=== PATIENT | female | born 1990 | race Caucasian/White ===

== ENCOUNTER → 2023-12-17 14:20 | Outpatient (REF) | payer BC, SELFPAY ==
[2023-12-17 16:32] LABS: Urine Albumin Negative (Neg - Trace); Urine Bilirubin Negative (Negative); Urine Character Clear (Clear); Urine Color Yellow; Urine Glucose Negative (Negative); Urine Ketone Negative (Negative); Urine Leukocyte Negative (Negative); Urine Nitrite Negative (Negative); Urine Occult Blood Trace (Negative); Urine Specific Gravity 1.015 (<1.030); Urine Urobilinogen Negative (Neg - 1+); Urine pH 6.5 (5.0-9.0)
[2023-12-17 16:36] LABS: % Basophils 0.6 % (0-2); % Immature Granulocytes 0.7 % (0-0.5); % Lymphocytes 25.5 % (20.5-51.1); % Monocytes 6.5 % (1.7-9.3); % Neutrophils 62.7 % (42.2-75.2); Absolute Basophils 0.1 10^3/uL (0-0.2); Absolute Eosinophils 0.4 10^3/uL (0-0.7); Absolute Immature Granulocytes 0.1 10^3/uL (0-0.05); Absolute Lymphocytes 2.4 10^3/uL (1.2-3.4); Absolute Monocytes 0.6 10^3/uL (0.1-0.6); Absolute Neutrophils 5.9 10^3/uL (1.4-6.5); Hematocrit 39.9 % (37.0-47.0); Hemoglobin 14.5 g/dL (12.0-16.0); Mean Corp Hgb Conc. 36.3 g/dL (33.0-37.0); Mean Corpuscular Hgb 31.3 pg (27.0-31.0); Mean Platelet Volume 8.9 fL (7.4-10.4); Nucleated Red Blood Cells % 0 %; Platelet Count 295 10^3/uL (130-400); Red Blood Cell Count 4.64 10^6/uL (4.20-5.40); Red Cell Dist. Width 12.5 % (11.5-14.5); White Blood Cell Count 9.4 10^3/uL (4.8-10.8)
[2023-12-17 16:41] LABS: Urine Bacteria Few (Negative); Urine White Cell 0-2 /HPF (0-5)
[2023-12-17 16:49] LABS: D-Dimer < 0.27 ug/mlFEU (0.00-0.50)
[2023-12-17 17:07] LABS: ALT (SGPT) 32 U/L (0-35); AST (SGOT) 32 U/L (14-36); Albumin 4.5 g/dl (3.5-5.0); Alkaline Phosphatase 99 U/L (38-126); Blood Urea Nitrogen 11 mg/dl (7-17); Calcium 9.2 mg/dl (8.4-10.2); Carbon Dioxide 22 mmol/L (22-30); Chloride 105 mmol/L (98-107); Glucose 83 mg/dl (70-99); Iron 67 ug/dl (37-170); Potassium 4.3 mmol/L (3.5-5.1); Sodium 135 mmol/L (135-145); Total Bilirubin 0.5 mg/dl (0.2-1.3); Total Protein 7.3 g/dl (6.3-8.2); eGFR > 60.00
[2023-12-17 17:42] LABS: Ferritin 16.1 ng/ml (6.24-137)
[2023-12-17 18:12] LABS: Free T4 1.34 ng/dl (0.78-2.19)
[2023-12-17 18:13] LABS: Folate 7.6 ng/ml (2.76-20); Vitamin B12 305 pg/ml (239-931)
== END ==
LOC: REG 14:20
PROVIDERS: ATTENDING PHYSICIAN Nurse Practitioner Family
DX: R07.81 Pleurodynia (principal); R53.83 Other fatigue
CPT/HCPCS: 36415; 80053; 81003; 81015; 82607; 82728; 82746; 83540; 84439; 84443; 85025; 85379

== ENCOUNTER → 2024-01-19 09:16 | Outpatient (REF) | payer BC, SELFPAY | LOC: HWRAD 09:16 | PROVIDERS: ATTENDING PHYSICIAN Nurse Practitioner Family; FAMILY PHYSICIAN Family Medicine | DX: R82.90 Unspecified abnormal findings in urine (principal) | CPT/HCPCS: 76770 ==

== ENCOUNTER 2024-02-27 12:14 | Emergency (ER) | payer MEDICARE, SELFPAY ==
[2024-02-27 12:16] VITALS: BP 150/92
[2024-02-27 12:41] VITALS: BMI 40.6
--- NOTE | 2024-02-27 14:45 | ED.GENMED ---
History of Present Illness
<SHEREE Gould - Last Filed: 02/27/24 15:28>
General
Chief Complaint: Eye Problems
Source: patient
Exam Limitations: none
Time Seen by Provider: 02/27/24 13:46
Nursing documentation reviewed up to this point in time: agreed with
History of Present Illness
History of Present Illness:
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 She reports she has flareups intermittently in the side. She was first diagnosed with this in November 2023. 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 She denies any injury. She denies any visual deficits/decreased vision. She went to urgent care today because she had discomfort today. She does not wear contacts.
Past History
<SHEREE Gould - Last Filed: 02/27/24 15:28>
Past History
ED Past Medical History: Hypothyroidism
ED Past Surgical History: None
Social History
Personal: Single
Living: with family
Review of Systems
<SHEREE Gould - Last Filed: 02/27/24 15:28>
Review of Systems
Allergies reviewed?: Yes
All Other Systems: ROS reviewed and negative except as documented in HPI and ROS
Constitutional: Reports no symptoms
EENT: Reports other (left eye irritation )
Skin: Reports no symptoms
Neurological: Reports no symptoms
Hematologic/Lymphatic: Reports no symptoms
Psychiatric: Reports no symptoms
Phy Exam
<SHEREE Gould - Last Filed: 02/27/24 15:28>
General Physical Exam
General Presentation: no apparent distress
General age: appears stated age
General Skin: warm and dry
General Habitus: normal
General Mental: alert
General Hydration: appears well hydrated
ENT Exam
ENT Exam: EOMI
Eye Exam
Eye Exam: PERRL, EOMI and other (left eye with mild swelling to upper and lower eyelid left eye is watery and injected examined with fluorescein+ abrasion noted between between 7 and 8 o clock on fb )
Eye Exam General: PERRL: bilateral and EOM intact: bilateral
Pupil Exam: Bilateral: round and reactive
Neurological Exam
Neurological Exam: alert and oriented x3
Musculoskeletal Exam
Musculoskeletal Exam: full ROM
Skin Exam
Skin Exam: normal color and warm/dry
Psychiatric Exam
Psychiatric Exam: normal mood/affect
Course
<SHEREE Gould - Last Filed: 02/27/24 15:28>
Orders/Labs/Results
Orders:
Orders
02/27/24 15:21
Visual Acuity- Treatment ONCE
02/27/24 15:22
Erythromycin (Ilotycin) [Erythromycin 0.5% Ophthalmic Ointment] See Dose Instructions OPHTH NOW STA
Tetanus/Diphth/Acelpertussis [Adacel] 0.5 ml IM .ONCE ONE
Vital Signs
Initial and Last Documented VS:
Initial Vital Signs
Temp Pulse Resp BP Pulse Ox
98.2 F 94 16 150/92 98
02/27/24 12:16 02/27/24 12:16 02/27/24 12:16 02/27/24 12:16 02/27/24 12:16
Last Documented Vital Signs
Temp Pulse Resp BP Pulse Ox
98.2 F 94 16 150/92 98
02/27/24 12:16 02/27/24 12:16 02/27/24 12:16 02/27/24 12:16 02/27/24 12:16
Information Services Assistant consulted with Physician
Information Services Assistant consulted with physician?: Yes
Name of Physician Consulted: vincent
<Chidi Arauz DO - Last Filed: 02/27/24 15:32>
Orders/Labs/Results
Orders:
Orders
02/27/24 15:21
Visual Acuity- Treatment ONCE
02/27/24 15:22
Erythromycin (Ilotycin) [Erythromycin 0.5% Ophthalmic Ointment] See Dose Instructions OPHTH NOW STA
Tetanus/Diphth/Acelpertussis [Adacel] 0.5 ml IM .ONCE ONE
Vital Signs
Initial and Last Documented VS:
Initial Vital Signs
Temp Pulse Resp BP Pulse Ox
98.2 F 94 16 150/92 98
02/27/24 12:16 02/27/24 12:16 02/27/24 12:16 02/27/24 12:16 02/27/24 12:16
Last Documented Vital Signs
Temp Pulse Resp BP Pulse Ox
98.2 F 94 16 150/92 98
02/27/24 12:16 02/27/24 12:16 02/27/24 12:16 02/27/24 12:16 02/27/24 12:16
<SHEREE Gould - Last Filed: 02/27/24 15:28>
MDM/Problems Addressed
Differential Diagnosis Includes:
Not limited to corneal abrasion, chronic corneal epithelial basement dystrophy
MDM/Problems Addressed:
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 She went to urgent care because it was more irritated than normal and sent to
the ER. On exam however she does have an obvious abrasion. I was able to discuss this with ophthalmology Dr. Hope who will see patient in the office tomorrow will DC on antibiotic ointment.
<SHEREE Gould - Last Filed: 02/27/24 15:28>
*Critical Care Note
Total Time (30-74mins, 75-104mins- exclusive of procedures): Not Applicable
ED Attending Note
<SHEREE Gould - Last Filed: 02/27/24 15:28>
-
Portions of this chart may have been created with voice recognition software.� Occasional wrong word or��sound alike� substitutions may have occurred due to the inherent limitations of voice recognition software.
<Chidi Arauz DO - Last Filed: 02/27/24 15:32>
ED Attending Note
Patient seen and examined by attending physician: Yes
I performed the substantive portion of visit, reviewed & personally made and approve the management plan that is documented in note by myself or EMANUEL.: Yes
ED Attending Note:
I have seen and evaluated the patient with a [id number] encounter. I have spoken to the advance practicer provider and involved in the medical history, the physical exam, medical decision making.
Evaluation and management service: agree unless noted differently below.
Results interpretation: agree unless noted differently below.
Focused HPI: 33-year-old female presenting for evaluation of left eye pain. She has a history of epithelial basement membrane dystrophy. She was told that her layer of skin overlying her eye can sometimes slough off
Physical exam: Left sclera injected. Large abrasion noted in central cornea with fluorescein uptake. No Nagi sign
Medical Decision Making: Ophthalmology aware. Will start antibiotic ointment and they will follow-up tomorrow.
Discharge Plan
Departure
Patient Disposition: Home (Routine Discharge)
Date of Disposition: 02/27/24
Time of Disposition: 15:23
Patient with high blood pressure during this ER visit?: Yes
Condition: Fair
Covid-19: Not Applicable
Discharge Problem:
Corneal abrasion
Instructions: Corneal Abrasion (DC), BLOOD PRESSURE
Prescriptions:
No Action
levothyroxine 125 MCG tablet
125 mcg PO DAILY
Patient Comments:
'OFF X MONTHS'
IBUPROFEN
2 tab PO Q4H PRN (Reason: PAIN)
ondansetron 4 MG tablet,disintegrating
4 mg PO TIDPRN PRN (Reason: NAUSEA) Qty: 15 0RF
hydromorphone 2 MG tablet
2 - 4 mg PO Q4HPRN PRN (Reason: PRN for pain) Qty: 20 0RF
Referrals:
Kam Hope MD [Active] -
Eligio Linda DO [Family Provider] -
Activity Restrictions/Additional Instructions:
Apply 1 cm of erythromycin antibiotic ointment into left eye up to 6 times per day. See ophthalmology tomorrow. call first thing in the morning and Dr. Hope will see you tomorrow. Return if any worsening of symptoms of increased pain decreased
vision fever chills
Interventions
Interventions:
*Risk Screen - Suicide Last Done: 02/27/24 12:16
*General Assessment Last Done: 02/27/24 12:41
*Neglect/Abuse Screening Last Done: 02/27/24 12:16
ED- Fall Risk Assessment Last Done: 02/27/24 12:43
*ED COVID-19 Vaccine History Last Done: 02/27/24 12:16
Discharge Date and Time
Print Language: FILIPINO
[2024-02-27] MEDS: ERYTHROMYCIN 0.5% OPHTHALMIC OINTMENT 1 APPLIC OPHTH (15:30)
[2024-02-27] MEDS: ADACEL 0.5 ML IM (15:30)
== END 2024-02-27 15:50 | disposition home or self-care (01) ==
LOC: EMR 12:14
PROVIDERS: EMERGENCY PHYSICIAN Emergency Medicine; FAMILY PHYSICIAN Family Medicine
DX: S05.02XA Injury of conjunctiva and corneal abrasion without foreign body, left eye, initial encounter (principal); X58.XXXA Exposure to other specified factors, initial encounter; H18.52 Epithelial (juvenile) corneal dystrophy; R03.0 Elevated blood-pressure reading, without diagnosis of hypertension; F31.9 Bipolar disorder, unspecified; Z23 Encounter for immunization
CPT/HCPCS: 99283; 90471; 90715